=== PATIENT | male | born 1985 | race Caucasian/White ===

== ENCOUNTER 2020-05-02 17:07 | Emergency (ER) | payer BC ==
[~2020-05-02] VITALS: Ht 162.6 cm; Wt 70.5 kg
[2020-05-02 17:17] VITALS: BP 132/84
--- NOTE | 2020-05-02 18:06 | NUR ---
pt is 34 yo male c/o epigastric pain " pulsating pain...cramping" off and on since Thursday, +diarrhea, increased fatique, no PMH, no meds, no fever/cough, waiting to be evaluated by provider
[2020-05-02 18:08] LABS: BASOPHILS % (AUTO) 0.5 % (0-1); EOSINOPHILS # (AUTO) 0.2 X10'3 (0-0.9); EOSINOPHILS % (AUTO) 2.6 % (0-6); HEMATOCRIT 41.8 % (42.0-52.0); HEMOGLOBIN 14.4 g/dl (14.0-17.9); LYMPHOCYTES % (AUTO) 26.4 % (21-51); MEAN CORPUSCULAR HGB CONC 34.4 g/dL (33.0-36.5); MEAN CORPUSCULAR VOLUME 84.3 FL (78-98); MEAN PLATELET VOLUME 7.9 FL (7.4-10.4); MONOCYTES # (AUTO) 0.8 X10'3 (0-0.9); MONOCYTES % (AUTO) 10.1 % (2-12); NEUTROPHILS # (AUTO) 4.6 X10'3 (1.8-7.7); NEUTROPHILS % (AUTO) 60.4 % (42-75); PLATELET COUNT 205 X10'3 (140-440); RED BLOOD COUNT 4.95 X10'6 (4.70-6.10); RED CELL DISTRIBUTION WIDTH 12.5 % (11.5-14.5); WHITE BLOOD COUNT 7.5 X10'3 (4.5-11.0)
[2020-05-02] MEDS ORDERED: LIDOcaine Viscous 15ml cup MM ONE (18:20)
[2020-05-02] MEDS ORDERED: pantoprazole 40mg Tablet.DR PO ONE (18:20)
[2020-05-02] MEDS ORDERED: mag hydrox/Alum hydrox/simeth 30ml oral suspension PO ONE (18:20)
[2020-05-02] MEDS ORDERED: famotidine 20mg tablet PO ONE (18:20)
[2020-05-02 18:26] LABS: ALANINE AMINOTRANSFERASE 24 U/L (12-78); ALBUMIN 3.8 G/DL (3.4-5.0); ALBUMIN/GLOBULIN RATIO 1.1 (1.1-1.5); ALKALINE PHOSPHATASE 32 IU/L (46-116); ANION GAP 9 (8-16); ASPARTATE AMINO TRANSFERASE 16 U/L (10-37); BILIRUBIN,TOTAL 0.4 MG/DL (0.1-1.0); BLOOD UREA NITROGEN 12 MG/DL (7-18); BUN/CREATININE RATIO 12.1 (5.4-32.0); CALCIUM 9.2 MG/DL (8.5-10.1); CHLORIDE 108 MMOL/L (99-107); CREATININE 0.99 MG/DL (0.60-1.10); GLUCOSE 88 MG/DL (70-104); LIPASE 81 U/L (73-393); POTASSIUM 3.8 MMOL/L (3.5-5.1); SODIUM 145 MMOL/L (135-145); TOTAL CARBON DIOXIDE 27.6 MMOL/L (24-32); TOTAL PROTEIN 7.3 G/DL (6.4-8.2); eGFR 86 ML/MIN
[2020-05-02] MEDS ORDERED: PANT-47 PO (19:15)
== END 2020-05-02 19:32 | disposition home or self-care (01) ==
LOC: ER 17:08
DX: R10.13 Epigastric pain (principal); R19.7 Diarrhea, unspecified
CPT/HCPCS: 36415; 80053; 83690; 85025; 99284